=== PATIENT | male | born 1990 | race Hispanic/Latino ===

== ENCOUNTER 2021-10-17 19:29 | Emergency (ER) | payer OTHER ==
[~2021-10-17] VITALS: Ht 185.4 cm; Wt 145.1 kg
== END 2021-10-17 20:24 | disposition home or self-care (01) ==
LOC: ER 20:16
DX: M54.50 Low back pain, unspecified (principal); G89.29 Other chronic pain
CPT/HCPCS: 99282

== ENCOUNTER → 2021-10-28 | Outpatient (RCR) | payer OTHER | LOC: PT 12:58 | DX: M54.50 Low back pain, unspecified (principal) ==

== ENCOUNTER 2021-11-12 11:00 | Outpatient (RCR) | payer OTHER | END 2021-11-25 | LOC: PT 11:00 | DX: M54.50 Low back pain, unspecified (principal) ==